=== PATIENT | female | born 1950 | race Caucasian/White ===

== ENCOUNTER 2017-07-30 17:45 | Emergency (ER) | payer MEDICARE, OTHER ==
--- NOTE | 2017-07-30 19:05 | ER Document Report ---
ED Medical Screen (RME) - General Chief Complaint: Leg Swelling Stated Complaint: RIGHT LEG AND FOOT SWELLING Time Seen by Provider: 07/30/17 18:57 Mode of Arrival: Ambulatory Information source: Patient Notes: 67-year-old female presents to the emergency room with right lower extremity swelling and some erythema anteriorly. Patient denies any fever, chills, nausea vomiting. TRAVEL OUTSIDE OF THE [place] IN LAST 30 DAYS: No - Related Data Allergies/Adverse Reactions: acetaminophen [From Percocet] Allergy (Severe, Verified 07/30/17 17:47) Generalized Itching erythromycin base [Erythromycin Base] Allergy (Severe, Verified 07/30/17 17:47) Thorat closes oxycodone [From Percocet] Allergy (Severe, Verified 07/30/17 17:47) Generalized Itching Penicillins Allergy (Severe, Verified 07/30/17 17:47) Hives Sulfa (Sulfonamide Antibiotics) Allergy (Severe, Verified 07/30/17 17:47) Burning rash Past Medical History - Social History Chew tobacco use (# tins/day): No Frequency of alcohol use: None Drug Abuse: None - Past Medical History Cardiac Medical History: Reports: Hx Hypercholesterolemia Pulmonary Medical History: Reports: Hx Asthma, Hx Pneumonia Neurological Medical History: Reports: Hx Migraine Renal/ Medical History: Reports: Hx Ovarian Cysts. Denies: Hx Peritoneal Dialysis GI Medical History: Reports: Hx Gastroesophageal Reflux Disease, Hx Ulcer Musculoskeltal Medical History: Reports Hx Musculoskeletal Trauma Skin Medical History: Reports Hx MRSA Psychiatric Medical History: Reports: Hx Depression Traumatic Medical History: Reports: Hx Fractures Past Surgical History: Reports: Hx Abdominal Surgery - lap, Hx Appendectomy, Hx Breast Surgery - extra nipple removed, Hx Cholecystectomy, Hx Hysterectomy, Hx Tonsillectomy - Immunizations Immunizations up to date: Yes Hx Diphtheria, Pertussis, Tetanus Vaccination: Yes - <5 years Physical Exam - Vital signs Vitals: Temp Pulse Resp BP Pulse Ox 98.0 F 71 18 151/79 H 97 07/30/17 17:55 07/30/17 17:55 07/30/17 17:55 07/30/17 17:55 07/30/17 17:55 Course - Vital Signs Vital signs: Temp Pulse Resp BP Pulse Ox 98.0 F 71 18 151/79 H 97 07/30/17 17:55 07/30/17 17:55 07/30/17 17:55 07/30/17 17:55 07/30/17 17:55
[2017-07-30 19:32] LABS: ABSOLUTE BASOPHILS # (AUTO) 0.1 10^3/uL (0.0-0.2); ABSOLUTE EOSINOPHILS # (AUTO) 0.2 10^3/uL (0.0-0.6); ABSOLUTE LYMPHOCYTES (AUTO) 1.7 10^3/uL (0.5-4.7); ABSOLUTE MONOCYTES (AUTO) 0.6 10^3/uL (0.1-1.4); ABSOLUTE NEUT (AUTO) 5.8 10^3/uL (1.7-8.2); BASOPHILS % (AUTO) 0.8 % (0-2); EOSINOPHILS % (AUTO) 2.9 % (0-6); HEMATOCRIT 43.9 % (36.0-47.0); HEMOGLOBIN 14.9 g/dL (12.0-15.5); LYMPHOCYTES % (AUTO) 20.4 % (13-45); MEAN CORPUSCULAR HEMOGLOBIN 29.2 pg (27.0-33.4); MEAN CORPUSCULAR HGB CONC 33.9 g/dL (32.0-36.0); MEAN CORPUSCULAR VOLUME 86 fl (80-97); MONOCYTES % (AUTO) 7.3 % (3-13); PLATELET COUNT 198 10^3/uL (150-450); RED BLOOD COUNT 5.09 10^6/uL (3.72-5.28); RED CELL DISTRIBUTION WIDTH 13.8 % (11.5-14.0); SEGMENTED NEUTROPHILS % (AUTO) 68.6 % (42-78); TOTAL CELLS COUNTED % (AUTO) 100 %; WHITE BLOOD COUNT 8.4 10^3/uL (4.0-10.5)
[2017-07-30 19:51] LABS: ALANINE AMINOTRANSFERASE 39 U/L (9-52); ALBUMIN 4.5 g/dL (3.5-5.0); ALKALINE PHOSPHATASE 88 U/L (38-126); ANION GAP 12 (5-19); ASPARTATE AMINO TRANSFERASE 26 U/L (14-36); BILIRUBIN,DIRECT 0.2 mg/dL (0.0-0.4); BILIRUBIN,TOTAL 1.2 mg/dL (0.2-1.3); BLOOD UREA NITROGEN 17 mg/dL (7-20); CALCIUM 10.1 mg/dL (8.4-10.2); CARBON DIOXIDE 25 mmol/L (22-30); CHLORIDE 109 mmol/L (98-107); GLUCOSE 116 mg/dL (75-110); POTASSIUM 4.2 mmol/L (3.6-5.0); SODIUM 145.7 mmol/L (137-145); TOTAL PROTEIN 6.7 g/dL (6.3-8.2)
[2017-07-30] MEDS ORDERED: CEPHALEXIN 500 MG CAPSULE PO ONE (21:08)
--- NOTE | 2017-07-30 21:09 | ER Document Report ---
ED General - General Chief Complaint: Leg Swelling Stated Complaint: RIGHT LEG AND FOOT SWELLING Time Seen by Provider: 07/30/17 18:57 Mode of Arrival: Ambulatory Notes: Patient is a 67-year-old female who presents with 3 days of progressively worsening pain, erythema and swelling to her distal right lower extremity. Patient states that there was a small area of erythema that started over the proximal central tibial plateau region on the right and over the past several days status increasingly spread towards her ankle. She notes that her family became concerned when she had increasing associated swelling to the area about the possibility of a DVT. This prompted her to come to the emergency department for further evaluation. She does describe the areas having a constant, dull, throbbing pain. Is worsened by touching the area. Nothing improves the pain. She denies any history of similar symptoms in the past. She does state however that she has had a cellulitis before and it seems like this appears to be a cellulitis. She has not seen a primary care doctor regarding today's concerns. She denies any fever associated constitutional symptoms. TRAVEL OUTSIDE OF THE [place] IN LAST 30 DAYS: No - Related Data Allergies/Adverse Reactions: acetaminophen [From Percocet] Allergy (Severe, Verified 07/30/17 17:47) Generalized Itching erythromycin base [Erythromycin Base] Allergy (Severe, Verified 07/30/17 17:47) Thorat closes oxycodone [From Percocet] Allergy (Severe, Verified 07/30/17 17:47) Generalized Itching Penicillins Allergy (Severe, Verified 07/30/17 17:47) Hives Sulfa (Sulfonamide Antibiotics) Allergy (Severe, Verified 07/30/17 17:47) Burning rash Past Medical History - General Information source: Patient - Social History Smoking Status: Never Smoker Chew tobacco use (# tins/day): No Frequency of alcohol use: None Drug Abuse: None Lives with: Spouse/Significant other Family History: Reviewed & Not Pertinent Patient has suicidal ideation: No Patient has homicidal ideation: No - Past Medical History Cardiac Medical History: Reports: Hx Hypercholesterolemia Pulmonary Medical History: Reports: Hx Asthma, Hx Pneumonia Neurological Medical History: Reports: Hx Migraine Renal/ Medical History: Reports: Hx Ovarian Cysts. Denies: Hx Peritoneal Dialysis GI Medical History: Reports: Hx Gastroesophageal Reflux Disease, Hx Ulcer Musculoskeltal Medical History: Reports Hx Musculoskeletal Trauma Skin Medical History: Reports Hx MRSA Psychiatric Medical History: Reports: Hx Depression Traumatic Medical History: Reports: Hx Fractures Past Surgical History: Reports: Hx Abdominal Surgery - lap, Hx Appendectomy, Hx Breast Surgery - extra nipple removed, Hx Cholecystectomy, Hx Hysterectomy, Hx Tonsillectomy - Immunizations Immunizations up to date: Yes Hx Diphtheria, Pertussis, Tetanus Vaccination: Yes - <5 years Review of Systems - Review of Systems Notes: Constitutional: Negative for fever. HENT: Negative for sore throat. Eyes: Negative for visual changes. Cardiovascular: Negative for chest pain. Respiratory: Negative for shortness of breath. Gastrointestinal: Negative for abdominal pain, vomiting or diarrhea. Genitourinary: Negative for dysuria. Musculoskeletal: Negative for back pain. Skin: Positive for rash. Neurological: Negative for headaches, weakness or numbness. 10 point ROS negative except as marked above and in HPI. Physical Exam - Vital signs Vitals: Temp Pulse Resp BP Pulse Ox 98.0 F 71 18 151/79 H 97 07/30/17 17:55 07/30/17 17:55 07/30/17 17:55 07/30/17 17:55 07/30/17 17:55 Interpretation: Hypertensive Notes: PHYSICAL EXAMINATION: GENERAL: Well-appearing, well-nourished and in no acute distress. HEAD: Atraumatic, normocephalic. EYES: Pupils equal round and reactive to light, extraocular movements intact, sclera anicteric, conjunctiva are normal. ENT: nares patent, oropharynx clear without exudates. Moist mucous membranes. NECK: Normal range of motion, supple without lymphadenopathy LUNGS: Breath sounds clear to auscultation bilaterally and equal. No wheezes rales or rhonchi. HEART: Regular rate and rhythm without murmurs ABDOMEN: Soft, nontender, normoactive bowel sounds. No guarding, no rebound. No masses appreciated. EXTREMITIES: Normal range of motion, 1+ edema to the right lower extremity, trace in the left. No cyanosis. NEUROLOGICAL: No focal neurological deficits. Moves all extremities spontaneously and on command. PSYCH: Normal mood, normal affect. SKIN: Warm, Dry, normal turgor, there is a 1 x 6 cm area of erythema over the tibial plateau on the right with associated surrounding edema. No purulent drainage. Course - Re-evaluation Re-evalutation: 07/30/17 21:10 Patient presents with symptoms most consistent with an acute cellulitis. Vitals within normal limits. Patient does not meet sepsis criteria is overall very well in appearance. Exam and history are not consistent with DVT. A venous Doppler study obtained in triage is noted to be negative for a DVT. There is no purulent component to the cellulitis and I will therefore cover with cephalexin for 7 days. At this time will discharge with return precautions and follow-up recommendations. Verbal discharge instructions given a the bedside and opportunity for questions given. Medication warnings reviewed. Patient is in agreement with this plan and has verbalized understanding of return precautions and the need for primary care follow-up in the next 24-72 hours. - Vital Signs Vital signs: Temp Pulse Resp BP Pulse Ox 98.0 F 64 20 154/67 H 96 07/30/17 21:13 07/30/17 21:13 07/30/17 21:13 07/30/17 21:13 07/30/17 21:13 - Laboratory Result Diagrams: 07/30/17 19:14 07/30/17 19:14 Laboratory results interpreted by me: 07/30/17 19:14 Sodium 145.7 H Chloride 109 H Glucose 116 H Discharge - Discharge Clinical Impression: Cellulitis of right lower extremity, Edema of right lower extremity Condition: Good Disposition: HOME, SELF-CARE Additional Instructions: The rash is likely due to infection of your skin. You need to take the antibiotics as prescribed. Do not stop even if the rash goes away until you have completed all the antibiotics. The area of redness was traced out here in the emergency department with a marking pen. You need to return to emergency department if the redness spreads outside of this area by more than 2 cm in any direction. You should also return if you develop fevers with temperature greater than 101, persistent vomiting, worsening pain, or have any other symptoms that are concerning to you. Prescriptions: RX: Cephalexin Monohydrate [Keflex 500 mg Capsule] 500 mg PO Q6H 7 Days capsule
[2017-07-30 21:14] VITALS: BP 154/67
--- NOTE | 2017-07-31 08:21 | XCELERA REPORT ---
[address] [address] Lower Extremity Venous Evaluation Name: MANAV BUCK Age: 67 yrs Gender: Female : 1950 Patient Status: Emergency Patient Location: ER Study Date: 07/30/2017 07:54 PM Procedure: Color flow and duplex imaging of the veins of the right lower extremity as well as the left Common Femoral vein. Reason For Study: rle swelling Ordering Physician: KIRBY PEREZ Performed By: Nicole Mata Right Sided Venous Evaluation Normal vessel filling wall to wall, compression and augmentation as well as Colour flow down to the infrageniculate veins. Left Sided Venous Evaluation The left common femoral vein is fully compressible. Spontaneous and phasic flow is present in the left common femoral vein. Interpretation Summary No duplex evidence of DVT or obstruction in the right lower extremity nor in the left Common Femoral vein. : KIRBY PEREZ > Adebayo Morris
== END 2017-07-30 21:20 | disposition home or self-care (01) ==
LOC: ER 17:45
DX: L03.115 Cellulitis of right lower limb (principal); R60.9 Edema, unspecified; E78.00 Pure hypercholesterolemia, unspecified; Z86.14 Personal history of Methicillin resistant Staphylococcus aureus infection; Z90.49 Acquired absence of other specified parts of digestive tract; Z90.710 Acquired absence of both cervix and uterus; Z88.2 Allergy status to sulfonamides; Z88.0 Allergy status to penicillin; Z88.6 Allergy status to analgesic agent
CPT/HCPCS: 99284; 36415; 85025; 80053; 93971 ×2; A9270

== ENCOUNTER 2018-10-12 07:52 | Day surgery (SDC) | payer MEDICARE, OTHER ==
[2018-10-12] MEDS ORDERED: PROPOFOL INJ 200 MG/20 ML VIAL IV ONE ×2 (08:09→11:01)
[2018-10-12 10:24] VITALS: BP 121/65
--- NOTE | 2018-10-12 12:12 | Operative Report ---
Operative Report DATE OF SURGERY: 10/12/18 Operative Report: The risks, benefits and alternatives of the procedure including the risk of bleeding, perforation requiring surgery have been explained to the patient in detail and informed consent has been obtained. The patient is brought back to the endoscopy suite and placed in a left, lateral decubital position. Timeout was called. Propofol medication is administered. Rectal examination is done which did not reveal any masses, tears or fissures. An Olympus videoscope was introduced into the patient's rectum. The scope was then carefully advanced all the way to the cecum. The cecum was identified by the usual anatomical landmarks of the ileocecal valve as well as the appendiceal office. Photodocumentation is obtained. The scope was then sequentially pulled back via the various segments of the colon including the ascending colon, hepatic flexure, transverse colon, splenic flexure, descending colon and finally into the rectosigmoid portions of the colon. Retroflexion maneuvers performed. PREOPERATIVE DIAGNOSIS: Personal history of polyps, gastroesophageal reflux disease POSTOPERATIVE DIAGNOSIS: Colon polyp was removed via snare polypectomy and retrieved, this was located adjacent to the appendiceal office in the cecum. Diverticulosis without any evidence of diverticulitis. Internal hemorrhoids. Gastritis status post biopsy right Helicobacter pylori. Duodenitis OPERATION: Colonoscopy with snare polypectomy. EGD with biopsy SURGEON: NIHARIKA ELLIOTT ANESTHESIA: LMAC TISSUE REMOVED OR ALTERED: As noted above. COMPLICATIONS: None. ESTIMATED BLOOD LOSS: None. INTRAOPERATIVE FINDINGS: As noted above. PROCEDURE: Patient tolerated the procedure well. No immediate postprocedure complications are noted. Patient is discharged in good condition. Discharge date 10/12/2018. Discharge diet: Regular. Discharge activity: Regular. 2 to 3-week follow-up to discuss findings. Patient is instructed call the office or proceed to the emergency room should there be any further proximal questions. Wait on the pathology. 3 to 5-year surveillance colonoscopy.
== END 2018-10-12 10:20 | disposition home or self-care (01) ==
LOC: END 07:52
PROVIDERS: ATTEND Internal Medicine Gastroenterology
DX: D12.0 Benign neoplasm of cecum (principal); Z86.010 Personal history of colon polyps; K29.50 Unspecified chronic gastritis without bleeding; K57.30 Diverticulosis of large intestine without perforation or abscess without bleeding; K64.8 Other hemorrhoids; K21.9 Gastro-esophageal reflux disease without esophagitis; Z79.51 Long term (current) use of inhaled steroids; Z88.2 Allergy status to sulfonamides
CPT/HCPCS: 43239; 45385; 88342 ×2; 88305 ×2; J2704